=== PATIENT | female | born 1960 | race Caucasian/White ===

== ENCOUNTER 2016-11-15 06:41 | Day surgery (SDC) | payer MEDICARE, MEDICAID ==
[~2016-11-15 06:41] MED LIST: ADVAIR 25028 BLISTE1 INH; ADVAIR 25028 BLISTE1 PO; CELEXA20 M2 PO; DEXAMETHASONE4 M1 PO; EPIPEN0.3 MG/0.3 IM; GABAPENTIN600 MG PO; HYDROCODON-ACE1 EA15 PO; HYDROCODONE/APA1 TA PO; KEPPRA500 M3 PO; LAXATIVES PO; LEVETIRACETAM500 M2 PO; MELATONIN5 M7 PO; MORPHINE SULFAT15 M PO; MORPHINE SULFAT30 M6 PO; MORPHINE SULFAT30 M7 PO; OXYCONTIN20 M1 PO; PEPCID20 M1 PO; PREDNISONE20 MG PO; SENOKOT-S TABL1 EACH PO; SPIRIVA18 MC1 INH; SYNTHROID100 MCG PO; SYNTHROID112 MC1 PO; SYNTHROID112 MCG PO; ZANTAC150 MG PO
[2016-11-15 08:02] LABS: BASO % 0.1 % (0-2); EOS % 0.6 % (0-7); EOSINOPHIL ABSOLUTE COUNT 0.1 tho/cmm (0.0-0.7); HGB-HEMOGLOBIN 9.7 gm/dl (12.0-15.5); IMMATURE GRANULOCYTES ABSOLUTE 0.06 tho/cmm (0-0.03); IMMATURE GRANULOCYTES PERCENT 0.4 % (0-0.3); LYMPH % 8.4 % (20-45); LYMPH ABSOLUTE COUNT 1.2 tho/cmm (0.8-4.5); MCH (MEAN CORPUSCULAR HGB) 25.2 pg (28.0-32.0); MCHC MEAN CORPUSCULAR HGB CONC 31.3 % (32.0-36.0); MCV (MEAN CELL VOLUME) 80.5 fl (82.0-96.0); MEAN PLATELET VOLUME 9.3 cmc (9.4-12.4); MONOCYTE ABSOLUTE COUNT 0.7 tho/cmm (0.0-1.2); NEUTROPHILS % 85.5 % (40-80); PLATELET COUNT 459 tho/cmm (150-450); RED BLOOD COUNT 3.85 mil/cmm (4.00-5.20); RED CELL DISTRIBUTION WIDTH 17.7 % (12.4-16.4); WHITE BLOOD COUNT 14.1 tho/cmm (4.0-10.0)
[2016-11-15 08:05] LABS: PROTHROMBIN TIME 11.7 SECONDS (9.0-13.6)
[2016-11-15 08:14] LABS: ANION GAP 11 mmol/L (0-20); BLOOD UREA NITROGEN 8 mg/dl (6-24); CALCIUM 7.8 mg/dl (8.5-10.5); CARBON DIOXIDE-VENOUS 32 mmol/L (22-32); CHLORIDE 98 mmol/l (96-110); CREATININE 0.68 mg/dl (0.50-1.10); GLUCOSE 86 mg/dL (70-110); SODIUM 138 mmol/L (135-145); eGFR VALUE FOR BLACK >90 mL/Min
[2016-11-15 08:16] LABS: POTASSIUM 2.9 mmol/L (3.7-5.1)
[2016-11-15] MEDS ORDERED: LASIX40 M1 PO (08:31)
== END 2016-11-15 11:15 ==
LOC: US 06:41 → SHSB 06:45
PROVIDERS: Radiology Diagnostic Radiology
PROC: BF25ZZZ Computerized Tomography (CT Scan) of Liver (ICD-10-PCS; principal; 2016-11-15)
DX: K76.89 Other specified diseases of liver (principal); C34.11 Malignant neoplasm of upper lobe, right bronchus or lung; C79.31 Secondary malignant neoplasm of brain; F41.9 Anxiety disorder, unspecified; E03.9 Hypothyroidism, unspecified; J44.9 Chronic obstructive pulmonary disease, unspecified; M25.559 Pain in unspecified hip; G89.29 Other chronic pain; Z79.899 Other long term (current) drug therapy; Z72.0 Tobacco use; Z98.890 Other specified postprocedural states; K76.9 Liver disease, unspecified
CPT/HCPCS: A4648; J7030

== ENCOUNTER 2016-11-25 17:26 | Inpatient (IN) | payer MEDICARE, MEDICAID ==
[~2016-11-25 17:26] MED LIST changes: +LASIX40 M1 PO
[2016-11-25] MEDS ORDERED: POTASSIUM CHLO20 ME3 PO (17:40)
[2016-11-25 18:04] LABS: BASO % 0.1 % (0-2); EOS % 0.1 % (0-7); HCT-HEMATOCRIT 30.3 % (34.0-49.0); HGB-HEMOGLOBIN 9.7 gm/dl (12.0-15.5); IMMATURE GRANULOCYTES ABSOLUTE 0.08 tho/cmm (0-0.03); IMMATURE GRANULOCYTES PERCENT 0.4 % (0-0.3); LYMPH % 5.3 % (20-45); MCH (MEAN CORPUSCULAR HGB) 25.2 pg (28.0-32.0); MCV (MEAN CELL VOLUME) 78.7 fl (82.0-96.0); MEAN PLATELET VOLUME 9.7 cmc (9.4-12.4); MONO % 5.5 % (0-12); NEUTROPHIL ABSOLUTE COUNT 16.7 tho/cmm (1.6-8.0); NEUTROPHIL-AUTOMATED 16.7 tho/cmm (1.6-8.0); NEUTROPHILS % 88.6 % (40-80); PLATELET COUNT 411 tho/cmm (150-450); RED BLOOD COUNT 3.85 mil/cmm (4.00-5.20); RED CELL DISTRIBUTION WIDTH 19.2 % (12.4-16.4); WHITE BLOOD COUNT 18.9 tho/cmm (4.0-10.0)
[2016-11-25 18:20] LABS: ALB/GLOB RATIO 0.3 (0.8-2.0); ALBUMIN 1.4 g/dl (3.5-5.0); ALKALINE PHOSPHATASE 159 U/L (33-138); ALT/SGPT 11 U/L (12-78); ANION GAP 13 mmol/L (0-20); AST/SGOT 24 U/L (10-40); BILIRUBIN,TOTAL 0.5 mg/dl (0-1.5); BLOOD UREA NITROGEN 12 mg/dl (6-24); CALCIUM 7.3 mg/dl (8.5-10.5); CARBON DIOXIDE-VENOUS 35 mmol/L (22-32); CHLORIDE 88 mmol/l (96-110); CREATININE 0.54 mg/dl (0.50-1.10); GLUCOSE 89 mg/dL (70-110); SODIUM 133 mmol/L (135-145); eGFR VALUE FOR BLACK >90 mL/Min
[2016-11-25 18:25] LABS: POTASSIUM 2.7 mmol/L (3.7-5.1)
[2016-11-25 18:35] LABS: URINE APPEARANCE CLOUDY; URINE BILIRUBIN SMALL (NEG); URINE BLOOD SMALL (NEG); URINE COLOR YELLOW; URINE GLUCOSE (UA) NEGATIVE (NEG); URINE KETONE MODERATE (NEG); URINE LEUKOCYTE ESTERASE POSITIVE (NEG); URINE NITRITE POSITIVE (NEG); URINE PROTEIN SMALL (NEG)
[2016-11-25 18:43] LABS: URINE AMORPHOUS 1+; URINE BACTERIA 4+; URINE RBC RARE /[HPF] (0-5)
[2016-11-25 18:47] LABS: PROCALCITONIN 3.78 ng/ml (0.05-0.09)
[2016-11-25] MEDS ORDERED: HYDROCODON-ACE1 EA15 PO (20:04)
[2016-11-25] MEDS ORDERED: LIDOCAINE-PRILO30 G1 TP (20:06)
[2016-11-25] MEDS ORDERED: DEXAMETHASONE4 M1 PO (20:08)
[2016-11-25] MEDS ORDERED: MAGIC MOUTHWASH SSP (20:11)
[2016-11-25 21:11] LABS: ABG CO2 ARTERIAL 34 mmol/L (21-27); ARTERIAL BLD GAS O2 SATURATION 97 % (95-98); ARTERIAL BLOOD GAS PCO2 41 mmHg (32-45); ARTERIAL PO2 87 mmHg (70-100); BICARBONATE 33 mmol/L (21-28); BLOOD GAS BASE EXCESS 9 mM/L (-/+3); PH 7.51 Units (7.35-7.45)
[2016-11-25 21:12] LABS: PHOSPHOROUS 2.6 mg/dl (2.5-4.9)
[2016-11-25 21:13] LABS: MAGNESIUM 1.9 mg/dl (1.8-2.6)
[2016-11-25 21:18] LABS: TSH-THYROID STIMULATING HORM. 0.8 uIU/ml (0.40-3.80)
[2016-11-25 21:21] LABS: C-REACTIVE PROTEIN 20.3 mg/dl (0-0.9)
[2016-11-26 02:28] LABS: PROTHROMBIN TIME 11.6 SECONDS (9.0-13.6)
[2016-11-26 03:23] LABS: BASO % 0.1 % (0-2); HCT-HEMATOCRIT 26.7 % (34.0-49.0); HGB-HEMOGLOBIN 8.4 gm/dl (12.0-15.5); IMMATURE GRANULOCYTES ABSOLUTE 0.06 tho/cmm (0-0.03); IMMATURE GRANULOCYTES PERCENT 0.4 % (0-0.3); LYMPH % 3.7 % (20-45); LYMPH ABSOLUTE COUNT 0.6 tho/cmm (0.8-4.5); MCH (MEAN CORPUSCULAR HGB) 24.9 pg (28.0-32.0); MCHC MEAN CORPUSCULAR HGB CONC 31.5 % (32.0-36.0); MCV (MEAN CELL VOLUME) 79.2 fl (82.0-96.0); NEUTROPHIL ABSOLUTE COUNT 14.8 tho/cmm (1.6-8.0); NEUTROPHIL-AUTOMATED 14.8 tho/cmm (1.6-8.0); NEUTROPHILS % 89.8 % (40-80); PLATELET COUNT 382 tho/cmm (150-450); RED BLOOD COUNT 3.37 mil/cmm (4.00-5.20); RED CELL DISTRIBUTION WIDTH 19.1 % (12.4-16.4); WHITE BLOOD COUNT 16.5 tho/cmm (4.0-10.0)
[2016-11-26 03:38] LABS: ALB/GLOB RATIO 0.3 (0.8-2.0); ALBUMIN 1.1 g/dl (3.5-5.0); ALKALINE PHOSPHATASE 114 U/L (33-138); AST/SGOT 18 U/L (10-40); BILIRUBIN,TOTAL 0.5 mg/dl (0-1.5); BLOOD UREA NITROGEN 9 mg/dl (6-24); CARBON DIOXIDE-VENOUS 30 mmol/L (22-32); CHLORIDE 99 mmol/l (96-110); CREATININE 0.36 mg/dl (0.50-1.10); SODIUM 138 mmol/L (135-145); eGFR VALUE FOR BLACK >90 mL/Min
[2016-11-26 03:42] LABS: ANION GAP 12 mmol/L (0-20); GLUCOSE 166 mg/dL (70-110); POTASSIUM 2.8 mmol/L (3.7-5.1)
[2016-11-26 03:43] LABS: ALT/SGPT >9 U/L (12-78); CALCIUM 6.5 mg/dl (8.5-10.5)
[2016-11-26 06:51] LABS: URINE APPEARANCE CLEAR; URINE BILIRUBIN NEGATIVE (NEG); URINE BLOOD NEGATIVE (NEG); URINE COLOR YELLOW; URINE GLUCOSE (UA) NEGATIVE (NEG); URINE KETONE NEGATIVE (NEG); URINE LEUKOCYTE ESTERASE NEGATIVE (NEG); URINE NITRITE POSITIVE (NEG); URINE PROTEIN NEGATIVE (NEG)
[2016-11-26 07:01] LABS: URINE RBC 0 /[HPF] (0-5)
[2016-11-26 07:02] LABS: URINE BACTERIA 4+
[2016-11-27 03:58] LABS: BASO % 0.1 % (0-2); HCT-HEMATOCRIT 24.3 % (34.0-49.0); HGB-HEMOGLOBIN 7.6 gm/dl (12.0-15.5); IMMATURE GRANULOCYTES ABSOLUTE 0.09 tho/cmm (0-0.03); IMMATURE GRANULOCYTES PERCENT 0.7 % (0-0.3); LYMPH % 3.5 % (20-45); LYMPH ABSOLUTE COUNT 0.5 tho/cmm (0.8-4.5); MCH (MEAN CORPUSCULAR HGB) 25.2 pg (28.0-32.0); MCHC MEAN CORPUSCULAR HGB CONC 31.3 % (32.0-36.0); MCV (MEAN CELL VOLUME) 80.5 fl (82.0-96.0); MEAN PLATELET VOLUME 9.4 cmc (9.4-12.4); MONO % 3.6 % (0-12); MONOCYTE ABSOLUTE COUNT 0.5 tho/cmm (0.0-1.2); NEUTROPHIL ABSOLUTE COUNT 11.9 tho/cmm (1.6-8.0); NEUTROPHIL-AUTOMATED 11.9 tho/cmm (1.6-8.0); NEUTROPHILS % 92.1 % (40-80); PLATELET COUNT 295 tho/cmm (150-450); RED BLOOD COUNT 3.02 mil/cmm (4.00-5.20); RED CELL DISTRIBUTION WIDTH 19.8 % (12.4-16.4); WHITE BLOOD COUNT 12.9 tho/cmm (4.0-10.0)
[2016-11-27 04:09] LABS: ANION GAP 10 mmol/L (0-20); BLOOD UREA NITROGEN 6 mg/dl (6-24); CALCIUM 6.9 mg/dl (8.5-10.5); CARBON DIOXIDE-VENOUS 27 mmol/L (22-32); CHLORIDE 109 mmol/l (96-110); CREATININE 0.28 mg/dl (0.50-1.10); GLUCOSE 105 mg/dL (70-110); POTASSIUM 3.7 mmol/L (3.7-5.1); SODIUM 142 mmol/L (135-145); eGFR VALUE FOR BLACK >90 mL/Min
[2016-11-27 05:18] LABS: PROCALCITONIN 2.19 ng/ml (0.05-0.09)
[2016-11-28 05:09] LABS: HGB-HEMOGLOBIN 8.4 gm/dl (12.0-15.5); PLATELET COUNT 348 tho/cmm (150-450)
[2016-11-29 06:52] LABS: BASO % 0.1 % (0-2); EOS % 0.5 % (0-7); EOSINOPHIL ABSOLUTE COUNT 0.1 tho/cmm (0.0-0.7); HCT-HEMATOCRIT 26.2 % (34.0-49.0); IMMATURE GRANULOCYTES ABSOLUTE 0.12 tho/cmm (0-0.03); IMMATURE GRANULOCYTES PERCENT 0.8 % (0-0.3); LYMPH ABSOLUTE COUNT 0.4 tho/cmm (0.8-4.5); MCH (MEAN CORPUSCULAR HGB) 25.2 pg (28.0-32.0); MCHC MEAN CORPUSCULAR HGB CONC 30.5 % (32.0-36.0); MCV (MEAN CELL VOLUME) 82.4 fl (82.0-96.0); MEAN PLATELET VOLUME 9.4 cmc (9.4-12.4); MONO % 5.9 % (0-12); MONOCYTE ABSOLUTE COUNT 0.8 tho/cmm (0.0-1.2); NEUTROPHIL ABSOLUTE COUNT 12.7 tho/cmm (1.6-8.0); NEUTROPHIL-AUTOMATED 12.7 tho/cmm (1.6-8.0); NEUTROPHILS % 89.7 % (40-80); PLATELET COUNT 282 tho/cmm (150-450); RED BLOOD COUNT 3.18 mil/cmm (4.00-5.20); RED CELL DISTRIBUTION WIDTH 19.9 % (12.4-16.4); WHITE BLOOD COUNT 14.2 tho/cmm (4.0-10.0)
[2016-11-29 07:02] LABS: ANION GAP 12 mmol/L (0-20); BLOOD UREA NITROGEN 5 mg/dl (6-24); CALCIUM 7.2 mg/dl (8.5-10.5); CARBON DIOXIDE-VENOUS 23 mmol/L (22-32); CHLORIDE 111 mmol/l (96-110); CREATININE 0.46 mg/dl (0.50-1.10); GLUCOSE 80 mg/dL (70-110); SODIUM 143 mmol/L (135-145); eGFR VALUE FOR BLACK >90 mL/Min
[2016-11-29 07:08] LABS: POTASSIUM 3.1 mmol/L (3.7-5.1)
[2016-11-30 05:34] LABS: HGB-HEMOGLOBIN 8.6 gm/dl (12.0-15.5); PLATELET COUNT 335 tho/cmm (150-450)
[2016-11-30 05:48] LABS: ANION GAP 12 mmol/L (0-20); BLOOD UREA NITROGEN 3 mg/dl (6-24); CALCIUM 7.5 mg/dl (8.5-10.5); CARBON DIOXIDE-VENOUS 25 mmol/L (22-32); CHLORIDE 110 mmol/l (96-110); CREATININE 0.39 mg/dl (0.50-1.10); GLUCOSE 83 mg/dL (70-110); SODIUM 144 mmol/L (135-145); eGFR VALUE FOR BLACK >90 mL/Min
[2016-12-01 05:38] LABS: PLATELET COUNT 251 tho/cmm (150-450)
[2016-12-01 15:24] LABS: ANION GAP 12 mmol/L (0-20); BLOOD UREA NITROGEN 4 mg/dl (6-24); CALCIUM 7.2 mg/dl (8.5-10.5); CARBON DIOXIDE-VENOUS 29 mmol/L (22-32); CHLORIDE 105 mmol/l (96-110); CREATININE 0.45 mg/dl (0.50-1.10); GLUCOSE 89 mg/dL (70-110); SODIUM 143 mmol/L (135-145); eGFR VALUE FOR BLACK >90 mL/Min
[2016-12-01 15:27] LABS: POTASSIUM 2.8 mmol/L (3.7-5.1)
[2016-12-02 04:52] LABS: HGB-HEMOGLOBIN 6.4 gm/dl (12.0-15.5); PLATELET COUNT 216 tho/cmm (150-450)
[2016-12-02 05:05] LABS: ANION GAP 12 mmol/L (0-20); BLOOD UREA NITROGEN 5 mg/dl (6-24); CARBON DIOXIDE-VENOUS 28 mmol/L (22-32); CHLORIDE 105 mmol/l (96-110); CREATININE 0.36 mg/dl (0.50-1.10); GLUCOSE 96 mg/dL (70-110); MAGNESIUM 1.7 mg/dl (1.8-2.6); SODIUM 141 mmol/L (135-145); eGFR VALUE FOR BLACK >90 mL/Min
[2016-12-02 05:11] LABS: POTASSIUM 3.9 mmol/L (3.7-5.1)
[2016-12-03 01:46] LABS: HGB-HEMOGLOBIN 7.9 gm/dl (12.0-15.5); PLATELET COUNT 183 tho/cmm (150-450)
[2016-12-03 03:37] LABS: BASO % 0.1 % (0-2); EOS % 0.2 % (0-7); HCT-HEMATOCRIT 26.4 % (34.0-49.0); HGB-HEMOGLOBIN 8.2 gm/dl (12.0-15.5); IMMATURE GRANULOCYTES ABSOLUTE 0.14 tho/cmm (0-0.03); IMMATURE GRANULOCYTES PERCENT 0.8 % (0-0.3); LYMPH % 2.9 % (20-45); LYMPH ABSOLUTE COUNT 0.5 tho/cmm (0.8-4.5); MCHC MEAN CORPUSCULAR HGB CONC 31.1 % (32.0-36.0); MCV (MEAN CELL VOLUME) 80.5 fl (82.0-96.0); MEAN PLATELET VOLUME 10.2 cmc (9.4-12.4); MONO % 5.8 % (0-12); NEUTROPHIL ABSOLUTE COUNT 15.8 tho/cmm (1.6-8.0); NEUTROPHIL-AUTOMATED 15.8 tho/cmm (1.6-8.0); NEUTROPHILS % 90.2 % (40-80); PLATELET COUNT 190 tho/cmm (150-450); RED BLOOD COUNT 3.28 mil/cmm (4.00-5.20); RED CELL DISTRIBUTION WIDTH 19.5 % (12.4-16.4); WHITE BLOOD COUNT 17.6 tho/cmm (4.0-10.0)
[2016-12-03 03:48] LABS: ANION GAP 10 mmol/L (0-20); BLOOD UREA NITROGEN 8 mg/dl (6-24); CALCIUM 7.1 mg/dl (8.5-10.5); CARBON DIOXIDE-VENOUS 30 mmol/L (22-32); CHLORIDE 106 mmol/l (96-110); CREATININE 0.48 mg/dl (0.50-1.10); GLUCOSE 97 mg/dL (70-110); POTASSIUM 4.1 mmol/L (3.7-5.1); SODIUM 142 mmol/L (135-145); eGFR VALUE FOR BLACK >90 mL/Min
[2016-12-03] MEDS ORDERED: LEVAQUIN750 M1 PO (10:45)
[2016-12-03] MEDS ORDERED: IPRAT-ALBUT 0.5-3 ML (10:47)
[2016-12-03] MEDS ORDERED: CULTURELLE1 EAC1 PO (10:48)
[2016-12-03] MEDS ORDERED: DULCOLAX10 MG PR (10:49)
[2016-12-03] MEDS ORDERED: MIRALAX17 G2 PO (10:49)
[2016-12-03] MEDS ORDERED: SENOKOT-S TABL1 EACH PO (10:50)
[2016-12-03] MEDS ORDERED: DEXAMETHASONE4 M1 PO (10:56)
[2016-12-03] MEDS ORDERED: ROXICODONE5 M2 PO/SL (10:56)
[2016-12-03] MEDS ORDERED: ATIVAN0.5 M1 PO/SL (10:57)
[2016-12-04 04:12] LABS: HGB-HEMOGLOBIN 7.1 gm/dl (12.0-15.5); PLATELET COUNT 155 tho/cmm (150-450)
[2016-12-06] MEDS ORDERED: ROXANOL PO/SL (10:27)
[2016-12-06] MEDS ORDERED: MORPHINE S20 MG/1 M1 SL (10:33)
== END 2016-12-06 12:27 | disposition hospice, inpatient (51) | DRG 871 ==
LOC: EDMED 17:26 → EMR2 20:23 → CCU 22:20 → 5WF 11-27 14:00 → PCUB 12-01 18:00
PROVIDERS: Emergency Medicine; Family Medicine; Internal Medicine; Nurse Practitioner; ADMIT Hospitalist
PROC: 02HV33Z Insertion of Infusion Device into Superior Vena Cava, Percutaneous Approach (ICD-10-PCS; principal; 2016-11-26)
PROC: B548ZZA Ultrasonography of Superior Vena Cava, Guidance (ICD-10-PCS; 2016-11-26)
PROC: 5A0935Z Assistance with Respiratory Ventilation, Less than 24 Consecutive Hours (ICD-10-PCS; 2016-12-01)
PROC: 30233N1 Transfusion of Nonautologous Red Blood Cells into Peripheral Vein, Percutaneous Approach (ICD-10-PCS; 2016-12-02)
DX: A41.9 Sepsis, unspecified organism (principal); E43 Unspecified severe protein-calorie malnutrition; J96.21 Acute and chronic respiratory failure with hypoxia; R65.21 Severe sepsis with septic shock; G93.41 Metabolic encephalopathy; C78.7 Secondary malignant neoplasm of liver and intrahepatic bile duct; J18.9 Pneumonia, unspecified organism; E24.9 Cushing's syndrome, unspecified; D62 Acute posthemorrhagic anemia; N39.0 Urinary tract infection, site not specified; C79.31 Secondary malignant neoplasm of brain; C34.90 Malignant neoplasm of unspecified part of unspecified bronchus or lung; Z51.5 Encounter for palliative care; Z66 Do not resuscitate; Z92.3 Personal history of irradiation; F17.290 Nicotine dependence, other tobacco product, uncomplicated; E03.9 Hypothyroidism, unspecified; E87.6 Hypokalemia; J44.9 Chronic obstructive pulmonary disease, unspecified; Z90.710 Acquired absence of both cervix and uterus
CPT/HCPCS: C1751; C9113; J0610; J1170; J1650; J1720; J1940; J1956; J3370; J3480; J7030; J7040; J7050; P9016; P9045